=== PATIENT | female | born 1980 | race Caucasian/White ===

== ENCOUNTER 2019-06-28 08:33 | Outpatient (CLI) | payer OTHER ==
[~2019-06-28 08:33] MED LIST: AMOX TR K CLV PO; CEFPROZIL500 MG PO; DICLOFENAC SOD100 MG PO; DULCOLAX5 MG PO; FLOVENT DI50 MCG/DIS IH; GILTUSS LIQUID237 M1 PO; MICRO-K8 MEQ PO; NASONEX17 GM NS; NORFLEX100 MG PO; PROVENTIL S1 ML/5 MG IH; [UNRECOGNIZED DRUG - OTHER] OP
== END 2019-06-28 08:43 | disposition home or self-care (01) ==
LOC: MAMO-SONO 08:33
DX: C75.3 Malignant neoplasm of pineal gland (principal); C71.2 Malignant neoplasm of temporal lobe; C71.1 Malignant neoplasm of frontal lobe; D50.8 Other iron deficiency anemias; D51.3 Other dietary vitamin B12 deficiency anemia; E78.49 Other hyperlipidemia; Z92.21 Personal history of antineoplastic chemotherapy; N63.20 Unspecified lump in the left breast, unspecified quadrant; N63.22 Unspecified lump in the left breast, upper inner quadrant; N60.22 Fibroadenosis of left breast